=== PATIENT | male | born 1950 | race Asian ===

== ENCOUNTER 2016-02-29 08:42 | Emergency (ER) | payer MEDICARE, BC ==
[~2016-02-29] VITALS: Ht 167.6 cm; Wt 69.1 kg
[~2016-02-29 08:42] MED LIST: ADVIL200 MG PO; ALEVE 220MG220 MG PO; AMANTIDINE HCL100 MG; CARBIDOPA/LEVODOPA; CENTRUM SILVER1 CTB PO; DESYREL 50MG50 MG PO; FOLIC ACID 11 MG/TA1 PO; GLUCOPHAGE500 MG/TAB PO; KLONOPIN0.5 MG; LINZESS290CAP PO; LIORESAL 1010 MG/TAB PO; METFORMIN500 MG PO; MIRALAX PA17 GM/Dose PO; NEURONTIN100 MG/CAP PO; NEURONTIN300 MG/CAP PO; PRINIVIL20 MG PO; PRINZIDE 12.5 M1 TA1 PO; PROBIOTIC FORMU1 CAP PO; SINEMET 25/101 UDTAB PO; SYMMETREL100 M1 PO; VITAMIN B IJ
[2016-02-29 08:44] VITALS: TEMP 97.6
[2016-02-29 09:37] LABS: BASO % 0.4 % (0.0-2.0); EOS # 0.2 (0.0-0.7); EOS % 2.7 % (0-4.0); GRAN # 5.1 (1.4-6.5); GRAN % 63.3 % (42.2-75.2); HEMATOCRIT 39.3 % (42.0-52.0); HEMOGLOBIN 13.3 g/dl (13.5-18.0); LYMPH # 2.1 (1.2-3.4); LYMPH % 25.5 % (20.0-51.0); MEAN CELL VOLUME 93 fl (80.0-100.0); MEAN CORPUSCULAR HEMOGLOBIN 32 pg (27.0-31.0); MEAN CORPUSCULAR HGB CONC 34 g/dl (33.0-37.0); MEAN PLATELET VOLUME 7.8 fl (7.4-10.4); MONO # 0.6 (0.1-0.6); MONO % 7.9 % (1.7-9.3); PLATELET COUNT 378 K/mm3 (130-400); RED BLOOD COUNT 4.22 M/mm3 (4.20-5.60); REDCELL DISTRIBUTION WIDTH-CV 12.5 % (11.5-14.5); WHITE BLOOD COUNT 8.1 K/mm3 (4.8-10.8)
[2016-02-29 09:42] LABS: C-REACTIVE PROTEIN 2.3 mg/dL (0.0-0.9); CALCIUM 10.2 mg/dL (8.4-10.2); CREATININE, serum 1.01 mg/dL (0.66-1.25); POTASSIUM 4.5 mmol/L (3.4-5.0)
[2016-02-29] MEDS ORDERED: ASPIRIN 81M81 MG/TA2 PO (10:30)
[2016-02-29 10:52] LABS: PH 6 (5-8); SQUAMOUS EPITHELIAL None Seen /hpf; URINE APPEARANCE Clear; URINE BACTERIA None Seen /hpf; URINE BILIRUBIN Negative (NEGATIVE); URINE BLOOD Negative (NEGATIVE); URINE COLOR Straw; URINE GLUCOSE Negative (NEGATIVE); URINE KETONE Negative (NEGATIVE); URINE RBC None Seen /hpf; URINE UROBILINOGEN Negative (NEGATIVE); URINE WBC None Seen /hpf
[2016-02-29] MEDS ORDERED: AMOXICILLIN 8751 TAB PO (11:07)
[2016-02-29 12:11] VITALS: BP 135/71; PULSE 77
== END 2016-02-29 12:30 | disposition home or self-care (01) ==
LOC: COL.ER 08:42
PROVIDERS: Emergency Medicine
DX: K61.1 Rectal abscess (principal); K59.00 Constipation, unspecified; G20 Parkinson's disease
CPT/HCPCS: J0295; J7030; Q9967

== ENCOUNTER → 2016-12-21 | Outpatient (CLI) | payer MEDICARE, BC ==
[~2016-12-21] MED LIST changes: +AMOXICILLIN 8751 TAB PO; +ASPIRIN 81M81 MG/TA2 PO
== END ==
LOC: ZCOL.LAB 14:26
DX: K61.1 Rectal abscess (principal)

== ENCOUNTER 2017-01-29 13:53 | Day surgery (SDC) | payer MEDICARE, BC ==
[~2017-01-29] VITALS: Ht 167.6 cm; Wt 63.8 kg
[2017-01-29 14:31] VITALS: BP 152/80; PULSE 73; TEMP 97.6
[2017-01-29 16:55] VITALS: BP 152/80; PULSE 80; TEMP 97.6
[2017-01-29] MEDS ORDERED: SINEMET 25/101 UDTAB PO (17:42)
[2017-01-29] MEDS ORDERED: SYMMETREL100 M1 PO (17:43)
[2017-01-29] MEDS ORDERED: LINZESS290CAP PO (17:47)
[2017-01-29] MEDS ORDERED: ZESTRIL 20MG TA20 MG PO ×2 (17:48)
[2017-01-29] MEDS ORDERED: NAPROSYN 2250 MG/TAB PO (17:49)
[2017-01-29] MEDS ORDERED: ADVIL200 MG PO (17:50)
[2017-01-29] MEDS ORDERED: GLUCOPHAGE1000 MG PO (17:50)
[2017-01-29] MEDS ORDERED: MIRALAX PA17 GM/Dose PO (17:51)
[2017-01-29] MEDS ORDERED: MULTI VITAMINS1 TAB PO (17:52)
[2017-01-29] MEDS ORDERED: NEURONTIN300 MG/CAP PO (17:56)
[2017-01-29] MEDS ORDERED: LIORESAL 1010 MG/TAB PO ×2 (17:57)
[2017-01-29] MEDS ORDERED: JANUVIA50 MG PO (17:58)
[2017-01-29] MEDS ORDERED: KLONOPIN 0.5MG0.5 MG PO (17:59)
[2017-01-29] MEDS ORDERED: NEUPRO1 MG/24 HR TD (18:00)
[2017-01-29] MEDS ORDERED: RESTORIL22.5 MG PO (18:00)
[2017-01-29 21:34] VITALS: BP 115/71; PULSE 95; TEMP 98.2
[2017-01-30] VITALS (11 sets, daily range): BP systolic 104–150; BP diastolic 66–89; PULSE 78–98; TEMP 97.3–98.9
[2017-01-30] MEDS ORDERED: MOTRIN 600600 MG/TAB PO (09:17)
[2017-01-30] MEDS ORDERED: COLACE 100100 MG/CAP PO (09:17)
[2017-01-30] MEDS ORDERED: NORCO 325 MG-51 TAB PO (09:17)
[2017-01-30] MEDS ORDERED: METAMUCIL3.4 GM/DOS PO (09:17)
== END 2017-01-30 11:40 | disposition home or self-care (01) ==
LOC: SURG 13:53 → SDCO 13:53
DX: K60.3 Anal fistula (principal); K92.1 Melena; G20 Parkinson's disease; I10 Essential (primary) hypertension; E11.9 Type 2 diabetes mellitus without complications; Z79.84 Long term (current) use of oral hypoglycemic drugs; K59.09 Other constipation
CPT/HCPCS: OP; G0378; G0379; J0690; J2704; J3010; J7120

== ENCOUNTER 2017-03-29 13:37 | Observation (INO) | payer MEDICARE, BC ==
[~2017-03-29] VITALS: Ht 165.1 cm; Wt 63.5 kg
[~2017-03-29 13:37] MED LIST changes: +COLACE 100100 MG/CAP PO; +GLUCOPHAGE1000 MG PO; +JANUVIA 100MG100 MG PO; +KLONOPIN 0.5MG0.5 MG PO; +METAMUCIL3.4 GM/DOS PO; +MOTRIN 600600 MG/TAB PO; +MULTI VITAMINS1 TAB PO; +NAPROSYN 2250 MG/TAB PO; +NEUPRO1 MG/24 HR TD; +NORCO 325 MG-51 TAB PO; +RESTORIL 1515 MG/CAP PO; +ZESTRIL 20MG TA20 MG PO
[2017-03-29 14:30] LABS: BASO # 0.1 (0.0-0.2); BASO % 0.7 % (0.0-2.0); EOS # 0.3 (0.0-0.7); EOS % 4.2 % (0-4.0); GRAN # 3.7 (1.4-6.5); GRAN % 51.9 % (42.2-75.2); LYMPH # 2.6 (1.2-3.4); LYMPH % 35.9 % (20.0-51.0); MEAN CELL VOLUME 89 fl (80.0-100.0); MEAN CORPUSCULAR HEMOGLOBIN 29 pg (27.0-31.0); MEAN CORPUSCULAR HGB CONC 33 g/dl (33.0-37.0); MONO # 0.5 (0.1-0.6); PLATELET COUNT 267 K/mm3 (130-400); RED BLOOD COUNT 4.11 M/mm3 (4.20-5.60); REDCELL DISTRIBUTION WIDTH-CV 14.4 % (11.5-14.5)
[2017-03-29 14:37] LABS: HEMATOCRIT 36.6 % (42.0-52.0)
[2017-03-29 14:42] LABS: ALANINE AMINOTRANSFERASE 17 U/L (21-72); ALBUMIN 4.5 gm/dL (3.5-5.0); ALKALINE PHOSPHATASE 102 U/L (50-136); ANION GAP 10 mmol/L (7-16); AST,SGOT 23 U/L (15-37); BILIRUBIN,TOTAL 0.5 mg/dL (0.0-1.0); BLOOD UREA NITROGEN 11 mg/dL (9-20); CALCIUM 10.2 mg/dL (8.4-10.2); CARBON DIOXIDE 25 mmol/L (22-30); CHLORIDE 102 mmol/L (98-107); CREATININE, serum 0.88 mg/dL (0.66-1.25); GLUCOSE 129 mg/dL (74-106); POTASSIUM 4.6 mmol/L (3.4-5.0); SODIUM 137 mmol/L (137-145); TOTAL PROTEIN 7.3 gm/dL (6.4-8.2)
[2017-03-29 14:54] LABS: TROPONIN-I < 0.012 ng/mL (0.000-0.034)
[2017-03-29 15:16] LABS: COLLECTION METHOD CLEAN CATCH
[2017-03-29 15:24] LABS: PH 6 (5-8); SQUAMOUS EPITHELIAL None Seen /hpf; URINE APPEARANCE Clear; URINE BACTERIA None Seen /hpf; URINE BILIRUBIN Negative (NEGATIVE); URINE BLOOD Negative (NEGATIVE); URINE COLOR Straw; URINE GLUCOSE Negative (NEGATIVE); URINE KETONE Negative (NEGATIVE); URINE LEUKOCYTE ESTERASE Negative (NEGATIVE); URINE NITRATE Negative (NEGATIVE); URINE PROTEIN(semi-quant) Negative (NEGATIVE); URINE RBC 0-2 /hpf; URINE UROBILINOGEN Negative (NEGATIVE)
[2017-03-29 18:14] VITALS: BP 150/97; PULSE 78; TEMP 98.2
[2017-03-29 20:43] VITALS: BP 154/108; PULSE 104; TEMP 97.7
[2017-03-29 20:56] VITALS: BP 137/82; PULSE 77; TEMP 97.7
[2017-03-30 01:12] VITALS: BP 124/65; PULSE 74; TEMP 97.7
[2017-03-30 06:01] VITALS: BP 122/81; PULSE 68; TEMP 98
[2017-03-30 07:36] VITALS: BP 132/73; PULSE 74; TEMP 98
[2017-03-30 11:38] VITALS: BP 117/73; PULSE 88; TEMP 98.1
[2017-03-30 16:05] VITALS: BP 14/85; PULSE 69; TEMP 97.9
== END 2017-03-30 17:52 | disposition home or self-care (01) ==
LOC: COL.ER 13:37 → MEDICAL 15:55
PROVIDERS: Emergency Medicine
DX: R53.1 Weakness (principal); G20 Parkinson's disease; I10 Essential (primary) hypertension; F32.9 Major depressive disorder, single episode, unspecified; E11.9 Type 2 diabetes mellitus without complications; Z79.84 Long term (current) use of oral hypoglycemic drugs; Z82.49 Family history of ischemic heart disease and other diseases of the circulatory system
CPT/HCPCS: 99232-AI; G0378; G8978-GP; G8979-GP; G8987-GO; G8988-GO; G8999-GN; G9186-GN; J1644; J7030

== ENCOUNTER 2017-04-04 09:53 | Inpatient (IN) | payer MEDICARE, BC ==
[~2017-04-04] VITALS: Ht 165.1 cm; Wt 65.2 kg
[2017-04-04 11:03] VITALS: BP 136/76; PULSE 91; TEMP 97.5
[2017-04-04 16:42] VITALS: BP 142/78; PULSE 76; TEMP 98.6
[2017-04-04 18:00] VITALS: BP 142/78; PULSE 76; TEMP 98.6
[2017-04-05 06:19] VITALS: BP 129/73; PULSE 71; TEMP 97.3
[2017-04-05 18:00] VITALS: BP 140/71; PULSE 70; TEMP 97.6
[2017-04-06 04:01] VITALS: BP 127/70; PULSE 73; TEMP 98.1
[2017-04-06 16:15] VITALS: BP 159/83; PULSE 81; TEMP 98.1
[2017-04-07 04:45] VITALS: BP 119/75; PULSE 70; TEMP 97.2
[2017-04-07 16:33] VITALS: BP 145/72; PULSE 76; TEMP 98
[2017-04-08 05:42] VITALS: BP 119/69; PULSE 77; TEMP 97.7
[2017-04-08 14:38] VITALS: BP 118/73; PULSE 76; TEMP 97.6
[2017-04-09 04:16] VITALS: BP 121/73; PULSE 74; TEMP 97.1
[2017-04-09 15:31] VITALS: BP 138/86; PULSE 86; TEMP 97.7
[2017-04-10 04:41] VITALS: BP 128/79; PULSE 82; TEMP 97.4
[2017-04-10 16:15] VITALS: BP 150/87; PULSE 90; TEMP 98.2
[2017-04-11 06:18] VITALS: BP 139/86; PULSE 65; TEMP 97.3
[2017-04-11 15:42] VITALS: BP 118/71; PULSE 84; TEMP 97.8
[2017-04-12 06:00] VITALS: BP 116/69; PULSE 76; TEMP 97.2
[2017-04-12 17:29] VITALS: BP 126/69; PULSE 85; TEMP 97.9
[2017-04-13 05:59] VITALS: BP 111/71; PULSE 74; TEMP 98
[2017-04-13 15:41] VITALS: BP 121/75; PULSE 95; TEMP 98
[2017-04-14 06:00] VITALS: BP 112/68; PULSE 72; TEMP 97.3
[2017-04-14 16:49] VITALS: BP 123/80; PULSE 96; TEMP 98.1
[2017-04-15 06:50] VITALS: BP 134/79; PULSE 73; TEMP 97.2
[2017-04-15 16:37] VITALS: BP 141/78; PULSE 77; TEMP 98
[2017-04-16 04:47] VITALS: BP 136/75; PULSE 71; TEMP 97.4
[2017-04-16 15:44] VITALS: BP 139/73; PULSE 67; TEMP 98.2
[2017-04-17 06:31] VITALS: BP 111/69; PULSE 76; TEMP 97.5
[2017-04-17 08:56] LABS: CHOLESTEROL RISK RATIO 4.4
[2017-04-17 09:38] LABS: PSA-TOTAL 0.53 ng/mL (0-4)
[2017-04-17 15:03] VITALS: BP 104/63; PULSE 76
[2017-04-17 19:16] VITALS: TEMP 98
[2017-04-18 06:02] VITALS: BP 117/75; PULSE 71; TEMP 97.7
[2017-04-18] MEDS ORDERED: TYLENOL 325MG325 MG PO (08:30)
[2017-04-18] MEDS ORDERED: SINEMET 25/101 UDTAB PO ×2 (08:31)
[2017-04-18] MEDS ORDERED: PROBIOTIC ACID1 EAC3 PO (08:33)
[2017-04-18] MEDS ORDERED: REQUIP XL4 MG PO (08:35)
[2017-04-18] MEDS ORDERED: HCTZ12.5TAB PO (08:35)
== END 2017-04-18 14:10 | disposition home health service (06) | DRG 57 ==
PROVIDERS: Emergency Medicine
DX: G20 Parkinson's disease (principal); I10 Essential (primary) hypertension; E11.9 Type 2 diabetes mellitus without complications; G89.21 Chronic pain due to trauma; M25.512 Pain in left shoulder; G47.52 REM sleep behavior disorder
CPT/HCPCS: 99222-AI; 99232-AI; 99239; G0103

== ENCOUNTER 2017-05-30 19:48 | Emergency (ER) | payer MEDICARE, BC ==
[~2017-05-30] VITALS: Ht 167.6 cm; Wt 68.2 kg
[~2017-05-30 19:48] MED LIST changes: +HCTZ12.5TAB PO; +PROBIOTIC ACID1 EAC3 PO; +REQUIP XL4 MG PO; +TYLENOL 325MG325 MG PO
[2017-05-30 19:53] VITALS: TEMP 97
[2017-05-30] MEDS ORDERED: MIRTAZAPINE7.5 MG PO (20:23)
[2017-05-30 20:36] LABS: BASO % 0.7 % (0.0-2.0); EOS # 0.5 (0.0-0.7); GRAN # 2.6 (1.4-6.5); GRAN % 43.9 % (42.2-75.2); HEMATOCRIT 37.2 % (42.0-52.0); HEMOGLOBIN 12.3 g/dl (13.5-18.0); LYMPH # 2.2 (1.2-3.4); LYMPH % 37.5 % (20.0-51.0); MEAN CELL VOLUME 89 fl (80.0-100.0); MEAN CORPUSCULAR HEMOGLOBIN 29 pg (27.0-31.0); MEAN CORPUSCULAR HGB CONC 33 g/dl (33.0-37.0); MEAN PLATELET VOLUME 8.2 fl (7.4-10.4); MONO # 0.5 (0.1-0.6); MONO % 8.7 % (1.7-9.3); PLATELET COUNT 251 K/mm3 (130-400); RED BLOOD COUNT 4.19 M/mm3 (4.20-5.60); REDCELL DISTRIBUTION WIDTH-CV 15.3 % (11.5-14.5)
[2017-05-30 20:41] LABS: ALBUMIN 4.2 gm/dL (3.5-5.0); BILIRUBIN,TOTAL 0.2 mg/dL (0.0-1.0); CALCIUM 9.8 mg/dL (8.4-10.2); CREATININE, serum 0.99 mg/dL (0.66-1.25); POTASSIUM 4.9 mmol/L (3.4-5.0); TOTAL PROTEIN 7.8 gm/dL (6.4-8.2)
[2017-05-30 20:50] LABS: COLLECTION METHOD CATHETER
[2017-05-30 20:55] LABS: PH 5 (5-8); SQUAMOUS EPITHELIAL None Seen /hpf; URINE APPEARANCE Clear; URINE BACTERIA None Seen /hpf; URINE BILIRUBIN Negative (NEGATIVE); URINE BLOOD Negative (NEGATIVE); URINE COLOR Yellow; URINE GLUCOSE Negative (NEGATIVE); URINE KETONE Negative (NEGATIVE); URINE LEUKOCYTE ESTERASE Negative (NEGATIVE); URINE NITRATE Negative (NEGATIVE); URINE PROTEIN(semi-quant) Negative (NEGATIVE); URINE RBC 0-2 /hpf; URINE UROBILINOGEN Negative (NEGATIVE)
[2017-05-30 23:33] VITALS: BP 150/94; PULSE 70
== END 2017-05-30 23:45 | disposition home or self-care (01) ==
LOC: COL.ER 19:48
PROVIDERS: Emergency Medicine
DX: R26.9 Unspecified abnormalities of gait and mobility (principal); R44.1 Visual hallucinations; G20 Parkinson's disease; Z79.84 Long term (current) use of oral hypoglycemic drugs; W06.XXXA Fall from bed, initial encounter

== ENCOUNTER → 2017-06-26 | Outpatient (CLI) | payer MEDICARE, BC ==
[~2017-06-26] MED LIST changes: +MIRTAZAPINE7.5 MG PO
== END ==
LOC: ZCOL.LAB 12:14
DX: E11.9 Type 2 diabetes mellitus without complications (principal); K59.00 Constipation, unspecified